=== PATIENT | male | born 1985 | race American Indian/Alaskan Native ===

== ENCOUNTER 2019-02-17 14:53 | Emergency (ER) | payer OTHER ==
[2019-02-17 15:04] VITALS: BP 141/82
--- NOTE | 2019-02-17 15:04 | Event Note ---
ED Screening Note Date of service: 02/17/19 Time: 15:02 ED Screening Note: This is a 34 y.o. M. that presents to the ER with pain and swelling to right medial 3rd nail x 2 days. This initial assessment/diagnostic orders/clinical plan/treatment(s) is/are subject to change based on patients health status, clinical progression and re- assessment by fellow clinical providers in the ED. Further treatment and workup at subsequent clinical providers discretion. Patient/guardian urged not to elope from the ED as their condition may be serious if not clinically assessed and managed. Initial orders include:
--- NOTE | 2019-02-17 16:55 | Emergency Department Report ---
Abscess Boil HPI - HPI Chief Complaint: Extremity Problem,Nontraumatic Stated Complaint: INFECTED FINGER Time Seen by Provider: 02/17/19 15:02 Duration: 3 Days Location: Upper Extremity (R middle finger) Severity: Mild History: Yes Pain, Yes Purulent Drainage, No Fever, No Numbness, No Foreign Body, No Previous History, No Insect Bite HPI: Pt w/ DM2 reports infection to R middle finger x 3-4 days. admits he bites his nails, no trauma Home Medications: Previous Rx's Medication Instructions Recorded Last Taken Type Cyclobenzaprine [Flexeril] 10 mg PO TID PRN #10 tablet 01/03/19 Unknown Rx Ibuprofen [Motrin] 800 mg PO Q8HR PRN #30 tablet 01/03/19 Unknown Rx predniSONE [Deltasone] 20 mg PO DAILY #5 tablet 01/03/19 Unknown Rx Sulfamethoxazole/Trimethoprim 1 each PO BID #20 tablet 02/17/19 Unknown Rx [Bactrim DS TAB] cephALEXin [Keflex] 500 mg PO Q6HR #40 capsule 02/17/19 Unknown Rx Allergies/Adverse Reactions: Allergies Allergy/AdvReac Type Severity Reaction Status Date / Time No Known Allergies Allergy Unverified 01/03/19 15:49 ED Review of Systems ROS: Stated complaint: INFECTED FINGER Other details as noted in HPI Comment: All other systems reviewed and negative Skin: as per HPI ED Past Medical Hx - Past Medical History Previous Medical History?: Yes Hx Diabetes: Yes - Social History Smoking Status: Never Smoker Substance Use Type: None - Medications Home Medications: Home Medications Medication Instructions Recorded Confirmed Last Taken Type Cyclobenzaprine [Flexeril] 10 mg PO TID PRN #10 tablet 01/03/19 Unknown Rx Ibuprofen [Motrin] 800 mg PO Q8HR PRN #30 tablet 01/03/19 Unknown Rx predniSONE [Deltasone] 20 mg PO DAILY #5 tablet 01/03/19 Unknown Rx Sulfamethoxazole/Trimethoprim 1 each PO BID #20 tablet 02/17/19 Unknown Rx [Bactrim DS TAB] cephALEXin [Keflex] 500 mg PO Q6HR #40 capsule 02/17/19 Unknown Rx ED Abscess Boil Physical Exam - Exam General: Vital signs noted. No distress. Alert and acting appropriately. Size: 1 cm (paronychia, no felon R middle finger) Exam: Yes Tenderness, Yes Fluctuance, Yes Surrounding Cellulites/Erythema, Yes Normal Neurologic Exam, Yes Normal Circulation, No Lymphangitis, No Crepitation, No Heart Murmur I & D Note - I & D Note I & D Note: Area was prepped and draped in usual sterile fashion. Anesthesia was deferred by patient. A single puncture was made using an 18G needle in the area of fluctuance. A moderate amount of purulent drainage was expressed both from the puncture and the lateral nail fold. The patient tolerated the procedure well. ED Course Vital Signs 02/17/19 15:02 Temperature 98.5 F Pulse Rate 97 H Respiratory 16 Rate Blood Pressure 141/82 [Right] O2 Sat by Pulse 98 Oximetry Critical care attestation.: If time is entered above; I have spent that time in minutes in the direct care of this critically ill patient, excluding procedure time. ED Medical Decision Making - Medical Decision Making Pt w/ paronychia No evidence of felon Abx, warm soaks, f/u PCP - Differential Diagnosis paronychia, felon, cellulitis ED Disposition Clinical Impression: Paronychia Disposition: DC- TO HOME OR SELFCARE Is pt being admited?: No Condition: Good Instructions: Paronychia (ED) Prescriptions: Sulfamethoxazole/Trimethoprim [Bactrim DS TAB] 1 each PO BID #20 tablet cephALEXin [Keflex] 500 mg PO Q6HR #40 capsule Referrals: WAYNE VIZCAINO MD [Staff Physician] - 3-5 Days Time of Disposition: 16:56
== END 2019-02-17 17:08 | disposition home or self-care (01) ==
LOC: ED 14:53
DX: L03.011 Cellulitis of right finger (principal); E11.9 Type 2 diabetes mellitus without complications; Z79.899 Other long term (current) drug therapy; Z79.1 Long term (current) use of non-steroidal anti-inflammatories (NSAID)